=== PATIENT | female | born 1980 | race Caucasian/White ===

== ENCOUNTER 2017-08-22 11:57 | Emergency (ER) | payer BC ==
[2017-08-22 12:33] VITALS: BP 137/80
--- NOTE | 2017-08-22 13:51 | UC ---
UC General HPI - HPI Summary HPI Summary: 11 DAYS OF DIARRHEA. HAD BEEN TKING FLAGYL 11 DAYS AGO. WAS AROUND GRANDMOTHER WHO HAD C-DIFF. NO FEVER. NO ABDOMINAL PAIN. NO BLOOD IN STOOL. - History of Current Complaint Chief Complaint: UCGI Stated Complaint: STOMACH BU SYMP. PAST 11 DAYS Time Seen by Provider: 08/22/17 12:42 Hx Obtained From: Patient, Family/Alarm Mechanism Adjuster Hx Last Menstrual Period: present Onset/Duration: Gradual Onset, Lasting Weeks Onset Severity: Moderate Current Severity: Moderate Pain Intensity: 0 Associated Signs & Symptoms: Positive: Diarrhea. Negative: Abdominal Pain, Chest Pain, Edema, Fever, Trauma, Vomiting, Wheezing, Weakness - Allergy/Home Medications Allergies/Adverse Reactions: Allergies Allergy/AdvReac Type Severity Reaction Status Date / Time Cefaclor [From [facility]] Allergy Intermediate Rash Verified 08/22/17 12:32 PMH/Surg Hx/FS Hx/Imm Hx Previously Healthy: Yes - Surgical History Surgical History: None - Family History Known Family History: Negative: Renal Disease - Social History Occupation: Employed Full-time Lives: With Family Alcohol Use: Weekly Substance Use Type: None Smoking Status (MU): Former Smoker Type: Cigarettes Amount Used/How Often: 1/2 PPD Length of Time of Smoking/Using Tobacco: 20 Years Have You Smoked in the Last Year: Yes When Did the Patient Quit Smoking/Using Tobacco: 10.5 MONTHS AGO - Immunization History Most Recent Influenza Vaccination: has not had Most Recent Tetanus Shot: 2012 Review of Systems Constitutional: Negative Skin: Negative Eyes: Negative ENT: Negative Respiratory: Negative Cardiovascular: Negative Gastrointestinal: Diarrhea Genitourinary: Negative Motor: Negative Neurovascular: Negative Musculoskeletal: Negative Neurological: Negative Psychological: Negative Is Patient Immunocompromised?: No All Other Systems Reviewed And Are Negative: Yes Physical Exam Triage Information Reviewed: Yes Appearance: Well-Appearing, No Pain Distress, Well-Nourished Vital Signs: Initial Vital Signs Temp 98.0 F 08/22/17 12:25 Pulse 61 08/22/17 12:25 Resp 18 08/22/17 12:25 BP 137/80 08/22/17 12:25 Pulse Ox 99 08/22/17 12:25 Vital Signs Reviewed: Yes Eye Exam: Normal ENT Exam: Normal ENT: Positive: Normal ENT inspection, Hearing grossly normal, Pharynx normal Dental Exam: Normal Neck exam: Normal Neck: Positive: Supple, Nontender, No Lymphadenopathy Respiratory Exam: Normal Respiratory: Positive: Chest non-tender, Lungs clear, Normal breath sounds, No respiratory distress, No accessory muscle use Cardiovascular Exam: Normal Cardiovascular: Positive: RRR, No Murmur, Pulses Normal, Brisk Capillary Refill Abdominal Exam: Normal Abdomen Description: Positive: Nontender, No Organomegaly, Soft Musculoskeletal Exam: Normal Neurological Exam: Normal Psychological Exam: Normal Skin Exam: Normal Course/Dx - Differential Dx - Multi-Symptom Differential Diagnoses: Metabolic Abnormality, Sepsis Provider Diagnoses: GASTROENTERITIS Discharge - Discharge Plan Condition: Stable Disposition: HOME Patient Education Materials: Gastroenteritis (ED), Nutrition Tips for Relief of Diarrhea (ED) Referrals: [facility] [Outside] Soren Cole MD [Medical Doctor] - Additional Instructions: BANANAS RICE APPLESAUCE TOAST
== END 2017-08-22 13:17 | disposition home or self-care (01) ==
LOC: UCCORT 11:57
DX: K52.9 Noninfective gastroenteritis and colitis, unspecified (principal); Z87.891 Personal history of nicotine dependence
CPT/HCPCS: 99212; G0463

== ENCOUNTER 2018-05-04 13:56 | Emergency (ER) | payer BC ==
[2018-05-04 14:46] VITALS: BP 116/70
--- NOTE | 2018-05-04 15:21 | UC ---
Skin Complaint HPI - HPI Summary HPI Summary: States she was petting her dog's a couple of days ago in in the interim she scratched her right hip. She noticed some abrasions after this and she has been applying hydrogen peroxide and Bactroban on the wounds. She comes to the urgent care concerned that these medications have not healed. Denies chills or fever. Denies prior medical history. She is allergic to Ceclor. - History of Current Complaint Chief Complaint: UCSkin Time Seen by Provider: 05/04/18 14:56 Stated Complaint: SKIN CONCERN Hx Last Menstrual Period: 04/09/18 Onset/Duration: Sudden Onset, Lasting Days Skin Exposure Onset/Duration: Days Ago Onset Severity: Mild Current Severity: Mild Pain Intensity: 0 Pain Scale Used: 0-10 Numeric Location: Discrete, Other - Right hip Aggravating Factor(s): Nothing Alleviating Factor(s): Nothing Associated Signs & Symptoms: Positive: Negative Related History: Trauma - Allergy/Home Medications Allergies/Adverse Reactions: Allergies Allergy/AdvReac Type Severity Reaction Status Date / Time cefaclor [From Ceclor] Allergy Rash Verified 05/04/18 14:41 Home Medications: Home Medications Calcium Carbonate [Calcium] 500 mg PO DAILY 05/04/18 [History Confirmed 05/04/18 ] Multivit-Minerals/Folic Acid [Adult One Daily Multivit Tab] 1 each PO DAILY [History Confirmed 05/04/18] Review of Systems Constitutional: Negative Skin: Bruising Eyes: Negative ENT: Negative Respiratory: Negative Cardiovascular: Negative Gastrointestinal: Negative Genitourinary: Negative Motor: Negative All Other Systems Reviewed And Are Negative: Yes PMH/Surg Hx/FS Hx/Imm Hx Previously Healthy: Yes - Surgical History Surgical History: Yes Surgery Procedure, Year, and Place: WISDOM TEETH REMOVED - Family History Known Family History: Positive: None Negative: Renal Disease - Social History Alcohol Use: Occasionally Substance Use Type: None Smoking Status (MU): Former Smoker Type: Cigarettes Amount Used/How Often: 1/2 PPD Length of Time of Smoking/Using Tobacco: 20 Years Have You Smoked in the Last Year: Yes When Did the Patient Quit Smoking/Using Tobacco: 2012 - Immunization History Most Recent Influenza Vaccination: has not had Most Recent Tetanus Shot: 2012 Physical Exam Triage Information Reviewed: Yes Appearance: Well-Appearing, No Pain Distress, Obese Vital Signs: Initial Vital Signs Temp 97.2 F 08/24/18 14:35 Pulse 57 05/04/18 14:35 Resp 14 05/04/18 14:35 BP 116/70 05/04/18 14:35 Pulse Ox 99 05/04/18 14:35 Vital Signs Reviewed: Yes Eyes: Positive: Conjunctiva Clear ENT: Positive: Hearing grossly normal Neck: Positive: Supple Respiratory: Positive: Chest non-tender Cardiovascular: Positive: Pulses Normal, Brisk Capillary Refill Abdomen Description: Positive: Nontender Skin Exam: Other - Vertical parallel excoriation gomes with mild surrounding erythema on right hip. No discharge or bleeding. Course/Dx - Course Course Of Treatment: The patient's excoriations are small and they seem to be healing well with Bactroban alone. Continue Bactroban. We'll send standby order for Bactrim DS lesions appear to worsen over time or are not responding to the ointment. - Diagnoses Provider Diagnoses: Skin abrasions Discharge - Sign-Out/Discharge Documenting (check all that apply): Patient Departure All imaging exams completed and their final reports reviewed: No Studies - Discharge Plan Condition: Stable Disposition: HOME Prescriptions: Sulfamethox/Trimethoprim DS* [Bactrim DS 800/160 TAB*] 1 tab PO BID 7 Days #14 tab Patient Education Materials: Abrasion (ED), Sulfamethoxazole/Trimethoprim (By mouth) Referrals: Soren Cole MD [Primary Care Provider] - Additional Instructions: Wait to start treatment with antibiotic, if skin lesions are not getting better with bactroban - Billing Disposition and Condition Condition: STABLE Disposition: Home
== END 2018-05-04 15:13 | disposition home or self-care (01) ==
LOC: UCCORT 13:56
DX: S70.211A Abrasion, right hip, initial encounter (principal); X58.XXXA Exposure to other specified factors, initial encounter; Y93.K9 Activity, other involving animal care; Y92.9 Unspecified place or not applicable; Z87.891 Personal history of nicotine dependence; Z88.3 Allergy status to other anti-infective agents
CPT/HCPCS: 99212; G0463

== ENCOUNTER 2019-05-11 15:01 | Emergency (ER) | payer BC ==
[2019-05-11 15:14] VITALS: BP 121/82
--- NOTE | 2019-05-11 15:31 | UC ---
UC General HPI - HPI Summary HPI Summary: pt reports having urinary frequency, urgency and hesitancy for about the past month. she also notes her bladder hurts if she holds her urine. she has had similar s/s's over the past few years as well and has seen urology on 2 separate occasions. she denies a diagnosis of interstitial cystitis. she denies risk/concern for std's. she has no fever, abdominal pain, flank pain or vaginal discharge or lesions. - History of Current Complaint Chief Complaint: UCGU Stated Complaint: URINARY Time Seen by Provider: 05/11/19 15:20 Hx Obtained From: Patient Hx Last Menstrual Period: 04/09/18 Pain Intensity: 2 - Allergy/Home Medications Allergies/Adverse Reactions: Allergies Allergy/AdvReac Type Severity Reaction Status Date / Time cefaclor [From [facility]] Allergy Rash Verified 05/11/19 15:14 PMH/Surg Hx/FS Hx/Imm Hx Previously Healthy: Yes - Surgical History Surgical History: Yes Surgery Procedure, Year, and Place: WISDOM TEETH REMOVED - Family History Known Family History: Positive: None Negative: Renal Disease - Social History Alcohol Use: Occasionally Substance Use Type: None Smoking Status (MU): Former Smoker Type: Cigarettes Amount Used/How Often: 1/2 PPD Length of Time of Smoking/Using Tobacco: 20 Years Have You Smoked in the Last Year: Yes When Did the Patient Quit Smoking/Using Tobacco: 2012 - Immunization History Most Recent Influenza Vaccination: has not had Most Recent Tetanus Shot: 2012 Review of Systems All Other Systems Reviewed And Are Negative: No Constitutional: Negative: Fever, Chills Gastrointestinal: Negative: Abdominal Pain, Vomiting, Diarrhea, Nausea Genitourinary: Positive: Dysuria, Frequency, Urgency. Negative: Hematuria, Vaginal/Penile Discharge, Ulceration/Lesion Physical Exam Triage Information Reviewed: Yes Appearance: Well-Appearing Vital Signs: Initial Vital Signs Temp 98.3 F 05/11/19 15:10 Pulse 66 05/11/19 15:10 Resp 12 05/11/19 15:10 BP 121/82 05/11/19 15:10 Pulse Ox 100 05/11/19 15:10 Vital Signs Reviewed: Yes Eyes: Positive: Conjunctiva Clear ENT: Positive: Normal ENT inspection Neck: Positive: Supple Respiratory: Positive: Lungs clear Cardiovascular: Positive: RRR Abdomen Description: Positive: Nontender, No Organomegaly, Soft. Negative: CVA Tenderness (R), CVA Tenderness (L) Bowel Sounds: Positive: Present Musculoskeletal: Positive: ROM Intact Neurological: Positive: Alert Psychological: Positive: Age Appropriate Behavior Skin Exam: Normal Diagnostics - Laboratory Lab Results: u/a= trace ketones, otherwise unremarkable. urine hcg=neg. urine mycoplasma and ureaplasma tests are pending. Course/Dx - Differential Dx - Multi-Symptom Differential Diagnoses: Other - non toxic. no acute abdomen. hcg=neg. possible interstitial cystitis vs atypical uti. pt denies risk/concern for pelvic infection/std. - Diagnoses Provider Diagnosis: Dysuria Discharge ED - Sign-Out/Discharge Documenting (check all that apply): Patient Departure All imaging exams completed and their final reports reviewed: No Studies - Discharge Plan Condition: Stable Disposition: HOME Patient Education Materials: Dysuria (ED) Referrals: Soren Cole MD [Primary Care Provider] - 7 Days - Billing Disposition and Condition Condition: STABLE Disposition: Home
[2019-05-16 15:43] LABS: Ureaplasma parvum PCR Positive; Ureaplasma urealyticum PCR Negative
== END 2019-05-11 16:14 | disposition home or self-care (01) ==
LOC: UCCORT 15:01
DX: R30.0 Dysuria (principal); Z88.1 Allergy status to other antibiotic agents; Z87.891 Personal history of nicotine dependence
CPT/HCPCS: 81003; 84702; 87798; 99211; G0463